=== PATIENT | male | born 1935 | race Caucasian/White ===

== ENCOUNTER 2021-03-17 16:06 | Emergency (ER) | payer OTHER ==
[2021-03-17] MEDS ORDERED: Sodium Chloride 0.9% 10 ML Syringe FLUSH PRN (16:17)
--- NOTE | 2021-03-17 16:32 | EDM.PDOC ---
ED HPI GENERAL MEDICAL PROBLEM - General Chief Complaint: Chest Pain Stated Complaint: CHEST PAINS Time Seen by Provider: 03/17/21 16:17 Source of Information: Reports: Patient, RN Notes Reviewed History Limitations: Reports: No Limitations - History of Present Illness INITIAL COMMENTS - FREE TEXT/NARRATIVE: Patient is an 85-year-old male who presents to the ER for evaluation of his chest pains. Incidentally the ambulance staff were in the ER bringing a different patient, and they did state that this was the gentleman that they had to do a lift assist on earlier this afternoon. Patient states that over the last week, he has had increased weakness, shortness of breath, some nausea, vomiting, diarrhea. States that he has some generalized chest discomfort but no obvious areas of chest pain. No increased cough, no fevers or chills. Patient does attend [facility] for [facility] care management, Dr. Navas is his PCP. His daughter did state that [facility] they referred him to the ER for further evaluation due to them not having access to radiology. Patient was not vaccinated for COVID-19. He does not think he has been around anyone has been sick. - Related Data Allergies Allergy/AdvReac Type Severity Reaction Status Date / Time aspirin Allergy Facial Verified 02/08/16 12:30 Swelling Home Meds: Home Meds Alogliptin Benzoate [Alogliptin] 12.5 mg PO DAILY 03/17/21 [History] Calcium Carbonate/Vitamin D3 [Oyster Shell 250 mg + Vit D] 1 tab PO BID 03/17/21 [History] Doxazosin Mesylate [Cardura XL] 4 mg PO BEDTIME 03/17/21 [History] Famotidine 20 mg PO BEDTIME 03/17/21 [History] Gabapentin [Neurontin] 600 mg PO TID 03/17/21 [History] Hydrocodone/Acetaminophen [HYDROcodone-Acetaminophen 5-325 MG] 1 tab PO BID 03/17/21 [History] Metoprolol Succinate [Toprol XL 50mg] 50 mg PO DAILY 03/17/21 [History] Multivitamin 1 tab PO DAILY 03/17/21 [History] Omeprazole 20 mg PO BID 03/17/21 [History] Pioglitazone [Actos] 30 mg PO DAILY 03/17/21 [History] atorvaSTATin [Lipitor] 5 mg PO BEDTIME 03/17/21 [History] cloNIDine [Catapres] 0.1 mg PO DAILY 03/17/21 [History] lisinopriL [Prinivil] 40 mg PO DAILY 03/17/21 [History] metFORMIN HCl [Metformin HCl] 500 mg PO BID 03/17/21 [History] ED ROS GENERAL - Review of Systems Review Of Systems: Comprehensive ROS is negative, except as noted in HPI. ED EXAM, GENERAL - Physical Exam Exam: See Below Exam Limited By: No Limitations General Appearance: Alert, WD/WN, No Apparent Distress Respiratory/Chest: No Respiratory Distress, Lungs Clear, Normal Breath Sounds, No Accessory Muscle Use, Chest Non-Tender Cardiovascular: Normal Peripheral Pulses, Regular Rate, Rhythm, No Edema Peripheral Pulses: 2+: Radial (L), Radial (R) Extremities: Normal Inspection, Normal Capillary Refill Neurological: Alert, Oriented, Normal Cognition, No Motor/Sensory Deficits Psychiatric: Normal Affect, Normal Mood Skin Exam: Warm, Dry, Intact, Normal Color, No Rash #1 Interpretation EKG Date: 03/17/21 Time: 16:15 Rhythm: NSR Rate (Beats/Min): 78 Ragan: Normal P-Wave: Present QRS: Normal ST-T: Normal QT: Normal Comparison: NA - No Prior EKG EKG Interpretation Comments: There are some old Q waves noted and some mild ST elevations in V3 through V5 noted by Dr. Sigala. Course - Vital Signs Last Recorded V/S: Last Vital Signs Temp 97.0 F 03/17/21 16:15 Pulse 79 03/17/21 16:15 Resp 20 03/17/21 16:15 BP 116/77 03/17/21 16:15 Pulse Ox 96 03/17/21 16:15 - Orders/Labs/Meds Orders: Active Orders 24 hr Category Date Time Status Peripheral IV Care [RC] . DIRECTED Care 03/17/21 16:17 Active BASIC METABOLIC PANEL,BMP [CHEM] Stat Lab 03/18/21 05:00 Ordered CBC WITH AUTO DIFF [HEME] Stat Lab 03/18/21 05:00 Ordered MAGNESIUM [CHEM] Stat Lab 03/18/21 05:00 Ordered PTT,PARTIAL THROMBOPLSTIN TIME [COAG] Q6H Lab 03/18/21 00:40 Ordered PTT,PARTIAL THROMBOPLSTIN TIME [COAG] Q6H Lab 03/18/21 06:40 Ordered PTT,PARTIAL THROMBOPLSTIN TIME [COAG] Q6H Lab 03/18/21 12:40 Ordered PTT,PARTIAL THROMBOPLSTIN TIME [COAG] Q6H Lab 03/18/21 18:40 Ordered PTT,PARTIAL THROMBOPLSTIN TIME [COAG] Q6H Lab 03/19/21 00:40 Ordered TROPONIN I [CHEM] Stat Lab 03/18/21 02:00 Ordered Acetaminophen/HYDROcodone Med 03/17/21 21:00 Active 1 tab PO BID Alogliptin Benzoate [Alogliptin] Med 03/18/21 09:00 Active 6.25 mg PO DAILY Calcium Carbonate [Calcium] Med 03/17/21 21:00 Active 500 mg PO BID Doxazosin Med 03/17/21 21:00 Active 1 mg PO BEDTIME Famotidine [Pepcid] Med 03/17/21 21:00 Active 10 mg PO BEDTIME Gabapentin [Neurontin] Med 03/17/21 21:00 Active 600 mg PO TID Heparin Sodium/D5W [Heparin 25,000 Units in D5W 500 ML] Med 03/17/21 18:30 Active 25,000 units in 500 ml IV TITRATE Multivitamin [Multivitamin] Med 03/18/21 09:00 Active 1 tab PO DAILY Omeprazole Med 03/17/21 21:00 Active 20 mg PO BID Sodium Chloride 0.9% [Saline Flush] Med 03/17/21 16:17 Active 10 ml FLUSH ASDIRECTED PRN atorvaSTATin Med 03/17/21 21:00 Active 5 mg PO BEDTIME cloNIDine [Catapres] Med 03/18/21 09:00 Active 0.1 mg PO DAILY lisinopriL [Prinivil] Med 03/18/21 09:00 Active 10 mg PO DAILY metFORMIN HCl [Metformin HCl] Med 03/17/21 21:00 Active 500 mg PO BID Peripheral IV Insertion Adult [OM.PC] Stat Oth 03/17/21 16:17 Ordered Medication Orders Clonidine HCl (Clonidine 0.1 Mg Tab) 0.1 mg PO DAILY DAV Famotidine (Famotidine 10 Mg Tab) 10 mg PO BEDTIME DAV Gabapentin (Gabapentin 600 Mg Tab) 600 mg PO TID DAV Heparin Sodium/Dextrose (Heparin 25,000 Units In D5w 500 Ml) 25,000 units in 500 mls @ 16.887 mls/hr IV TITRATE DAV; Protocol Last Admin: 03/17/21 18:40 Dose: 12 units/kg/hr, 16.887 mls/hr Documented by: MARTHA Cosigned by: KEVIN Lisinopril (Lisinopril 10 Mg Tab) 10 mg PO DAILY DAV Non-Formulary Medication (Acetaminophen/Hydrocodone) 1 tab PO BID DAV Non-Formulary Medication (Alogliptin Benzoate [Alogliptin]) 6.25 mg PO DAILY DAV Non-Formulary Medication (Atorvastatin) 5 mg PO BEDTIME DAV Non-Formulary Medication (Calcium Carbonate [Calcium]) 500 mg PO BID DAV Non-Formulary Medication (Doxazosin) 1 mg PO BEDTIME DAV Non-Formulary Medication (Metformin Hcl [Metformin Hcl]) 500 mg PO BID DAV Non-Formulary Medication (Multivitamin [Multivitamin]) 1 tab PO DAILY DAV Non-Formulary Medication (Omeprazole) 20 mg PO BID DAV Sodium Chloride (Sodium Chloride 0.9% 10 Ml Syringe) 10 ml FLUSH ASDIRECTED PRN PRN Reason: Keep Vein Open Last Admin: 03/17/21 16:23 Dose: 10 ml Documented by: KEVIN Labs: Laboratory Tests 03/17/21 03/17/21 03/17/21 Range/Units 16:58 16:58 16:58 WBC 6.81 (4.23-9.07) K/mm3 RBC 3.15 L (4.63-6.08) M/mm3 Hgb 9.5 L (13.7-17.5) gm/dl Hct 29.2 L (40.1-51.0) % MCV 92.7 H (79.0-92.2) fl MCH 30.2 (25.7-32.2) pg MCHC 32.5 (32.2-35.5) g/dl RDW Std Deviation 48.3 H (35.1-43.9) fL Plt Count 256 (163-337) K/mm3 MPV 11.1 (9.4-12.3) fl Neut % (Auto) 78.2 H (34.0-67.9) % Lymph % (Auto) 11.2 L (21.8-53.1) % Page % (Auto) 10.0 (5.3-12.2) % Eos % (Auto) 0.1 L (0.8-7.0) Baso % (Auto) 0.1 (0.1-1.2) % Neut # (Auto) 5.32 (1.78-5.38) K/mm3 Lymph # (Auto) 0.76 L (1.32-3.57) K/mm3 Page # (Auto) 0.68 (0.30-0.82) K/mm3 Eos # (Auto) 0.01 L (0.04-0.54) K/mm3 Baso # (Auto) 0.01 (0.01-0.08) K/mm3 PT 12.4 H (9.7-12.0) SECONDS INR 1.12 APTT 29.8 (21.7-31.4) SECONDS Sodium 137 (136-145) mEq/L Potassium 4.7 (3.5-5.1) mEq/L Chloride 103 (98-107) mEq/L Carbon Dioxide 15 L (21-32) mEq/L Anion Gap 23.7 H (5-15) BUN 82 H (7-18) mg/dL Creatinine 3.1 H (0.7-1.3) mg/dL Est Cr Clr Drug Dosing TNP Estimated GFR (MDRD) 19 (>60) mL/min BUN/Creatinine Ratio 26.5 H (14-18) Glucose 210 H (70-99) mg/dL Calcium 8.4 L (8.5-10.1) mg/dL Magnesium 2.2 (1.8-2.4) mg/dL Total Bilirubin 0.5 (0.2-1.0) mg/dL AST 20 (15-37) U/L ALT 18 (16-63) U/L Alkaline Phosphatase 60 (46-116) U/L Troponin I 2.648 H* (0.00-0.056) ng/mL NT-Pro-B Natriuret Pep (0-450) pg/mL Total Protein 6.4 (6.4-8.2) g/dl Albumin 2.6 L (3.4-5.0) g/dl Globulin 3.8 gm/dL Albumin/Globulin Ratio 0.7 L (1-2) Influenza Type A RNA (NEGATIVE) Influenza Type B RNA (NEGATIVE) SARS-CoV-2 RNA (JUNIE) (NEGATIVE) 03/17/21 03/17/21 03/17/21 Range/Units 16:58 18:32 20:00 WBC (4.23-9.07) K/mm3 RBC (4.63-6.08) M/mm3 Hgb (13.7-17.5) gm/dl Hct (40.1-51.0) % MCV (79.0-92.2) fl MCH (25.7-32.2) pg MCHC (32.2-35.5) g/dl RDW Std Deviation (35.1-43.9) fL Plt Count (163-337) K/mm3 MPV (9.4-12.3) fl Neut % (Auto) (34.0-67.9) % Lymph % (Auto) (21.8-53.1) % Page % (Auto) (5.3-12.2) % Eos % (Auto) (0.8-7.0) Baso % (Auto) (0.1-1.2) % Neut # (Auto) (1.78-5.38) K/mm3 Lymph # (Auto) (1.32-3.57) K/mm3 Page # (Auto) (0.30-0.82) K/mm3 Eos # (Auto) (0.04-0.54) K/mm3 Baso # (Auto) (0.01-0.08) K/mm3 PT (9.7-12.0) SECONDS INR APTT (21.7-31.4) SECONDS Sodium (136-145) mEq/L Potassium (3.5-5.1) mEq/L Chloride (98-107) mEq/L Carbon Dioxide (21-32) mEq/L Anion Gap (5-15) BUN (7-18) mg/dL Creatinine (0.7-1.3) mg/dL Est Cr Clr Drug Dosing Estimated GFR (MDRD) (>60) mL/min BUN/Creatinine Ratio (14-18) Glucose (70-99) mg/dL Calcium (8.5-10.1) mg/dL Magnesium (1.8-2.4) mg/dL Total Bilirubin (0.2-1.0) mg/dL AST (15-37) U/L ALT (16-63) U/L Alkaline Phosphatase (46-116) U/L Troponin I 2.785 H* (0.00-0.056) ng/mL NT-Pro-B Natriuret Pep > 08307 H (0-450) pg/mL Total Protein (6.4-8.2) g/dl Albumin (3.4-5.0) g/dl Globulin gm/dL Albumin/Globulin Ratio (1-2) Influenza Type A RNA Negative (NEGATIVE) Influenza Type B RNA Negative (NEGATIVE) SARS-CoV-2 RNA (JUNIE) Negative (NEGATIVE) Meds: Medications Generic Name Dose Route Start Last Admin Trade Name Freq PRN Reason Stop Dose Admin Clonidine HCl 0.1 mg 03/18/21 09:00 Clonidine 0.1 Mg Tab PO DAILY DAV Famotidine 10 mg 03/17/21 21:00 Famotidine 10 Mg Tab PO BEDTIME DAV Gabapentin 600 mg 03/17/21 21:00 Gabapentin 600 Mg Tab PO TID [facility] Heparin Sodium/Dextrose 25,000 units in 500 mls @ 16.887 mls/hr 03/17/21 18:30 03/17/21 18:40 Heparin 25,000 Units In D5w 500 Ml IV 12 units/kg/hr TITRATE DAV 16.887 mls/hr Administration Protocol 12 UNITS/KG/HR Lisinopril 10 mg 03/18/21 09:00 Lisinopril 10 Mg Tab PO DAILY DAV Non-Formulary Medication 1 tab 03/17/21 21:00 Acetaminophen/Hydrocodone PO BID [facility] Non-Formulary Medication 6.25 mg 03/18/21 09:00 Alogliptin Benzoate [Alogliptin] PO DAILY [facility] Non-Formulary Medication 5 mg 03/17/21 21:00 Atorvastatin PO BEDTIME DAV Non-Formulary Medication 500 mg 03/17/21 21:00 Calcium Carbonate [Calcium] PO BID [facility] Non-Formulary Medication 1 mg 03/17/21 21:00 Doxazosin PO BEDTIME DAV Non-Formulary Medication 500 mg 03/17/21 21:00 Metformin Hcl [Metformin Hcl] PO BID [facility] Non-Formulary Medication 1 tab 03/18/21 09:00 Multivitamin [Multivitamin] PO DAILY [facility] Non-Formulary Medication 20 mg 03/17/21 21:00 Omeprazole PO BID DAV Sodium Chloride 10 ml 03/17/21 16:17 03/17/21 16:23 Sodium Chloride 0.9% 10 Ml Syringe FLUSH 10 ml ASDIRECTED PRN Administration Keep Vein Open Discontinued Medications Generic Name Dose Route Start Last Admin Trade Name Una PRN Reason Stop Dose Admin Heparin Sodium (Porcine) 4,000 units 03/17/21 18:20 03/17/21 18:42 Heparin Sodium 5,000 Units/Ml Vial IVPUSH 03/17/21 18:21 4,000 units .BOLUS ONE Administration Loperamide HCl 4 mg 03/17/21 21:11 03/17/21 21:23 Loperamide 2 Mg Cap PO 03/17/21 21:12 4 mg ONETIME ONE Administration - Re-Assessments/Exams Free Text/Narrative Re-Assessment/Exam: 03/17/21 16:32 Patient presents to the ER for the evaluation of his chest pains and other generalized symptoms. EKG was obtained at time of triage, does show some old infarcts however the patient is denying any previous myocardial injuries. I did offer to do a COVID-19 screen but the patient refused. We will also do chest x-ray and basic labs for evaluation. 03/17/21 17:56 Initial labs have started to result, CBC demonstrates a normal white count, but slightly low red count at 3.15 with hemoglobin level at 9.5, suggesting anemia. Chest x-ray did show slight parenchymal densities within both lung bases. Please correlate if patient has symptoms suggest mild pneumonia, findings otherwise could represent prominent atelectasis. Metabolic panel and other labs are still pending. EKG does show normal sinus rhythm with some Q waves suggesting old cardiac injury however the patient denied any hospitalizations for anything like this. 03/17/21 19:42 Metabolic panel was impressive for renal insufficiency with a creatinine elevated at 3.1 GFR low at 19, anion gap is elevated as well. Coagulation studies were within normal limits. Patient's BNP was markedly elevated at over 35,000, troponin is elevated at 2.648. I have been in contact with both facilities in [facility], and [facility] in [place] and all of these facilities were either on diversion or declined the patient for transfer at this time. I have called the state transfer center to try to get this patient transferred. I was able to speak with a provider in [place] and he does recommend starting heparin, and trending the troponins while waiting. Patient Covid screen was negative. A second troponin has been ordered for 1999. ER boarding orders will likely be filled out to continue all of his prior medications, repeat troponins and labs in the morning. 03/17/21 20:49 Repeat troponin was elevated at 2.785, which did go up from his initial draw. Have been in contact with [facility] in [facility], they might have a bed for transfer this patient. 03/17/21 21:04 I was able to talk with [facility] in [facility] and they do have a bed for transfer for this patient and Dr. Hawthorne has ultimately accepted the patient in transfer for non-STEMI. Departure - Departure Time of Disposition: 21:09 Disposition: DC/Tfer to Acute Hospital 02 Reason for Transfer *Q: Other (NSTEMI) Condition: Fair Clinical Impression: NSTEMI (non-ST elevated myocardial infarction) Forms: ED Department Discharge Sepsis Event Note (ED) - Evaluation Sepsis Screening Result: No Definite Risk - Focused Exam Vital Signs: Vital Signs Temp Pulse Resp BP Pulse Ox 03/17/21 16:15 97.0 F 79 20 116/77 96 - My Orders Last 24 Hours: My Active Orders 03/17/21 16:17 Peripheral IV Care [RC] . DIRECTED Sodium Chloride 0.9% [Saline Flush] 10 ml FLUSH ASDIRECTED PRN Peripheral IV Insertion Adult [OM.PC] Stat 03/17/21 18:30 Heparin Sodium/D5W [Heparin 25,000 Units in D5W 500 ML] 25,000 units in 500 ml IV TITRATE 03/17/21 21:00 Acetaminophen/HYDROcodone 1 tab PO BID Calcium Carbonate [Calcium] 500 mg PO BID Doxazosin 1 mg PO BEDTIME Famotidine [Pepcid] 10 mg PO BEDTIME Gabapentin [Neurontin] 600 mg PO TID Omeprazole 20 mg PO BID atorvaSTATin 5 mg PO BEDTIME metFORMIN HCl [Metformin HCl] 500 mg PO BID 03/18/21 00:40 PTT,PARTIAL THROMBOPLSTIN TIME [COAG] Q6H 03/18/21 02:00 TROPONIN I [CHEM] Stat 03/18/21 05:00 BASIC METABOLIC PANEL,BMP [CHEM] Stat CBC WITH AUTO DIFF [HEME] Stat MAGNESIUM [CHEM] Stat 03/18/21 06:40 PTT,PARTIAL THROMBOPLSTIN TIME [COAG] Q6H 03/18/21 09:00 Alogliptin Benzoate [Alogliptin] 6.25 mg PO DAILY Multivitamin [Multivitamin] 1 tab PO DAILY cloNIDine [Catapres] 0.1 mg PO DAILY lisinopriL [Prinivil] 10 mg PO DAILY 03/18/21 12:40 PTT,PARTIAL THROMBOPLSTIN TIME [COAG] Q6H 03/18/21 18:40 PTT,PARTIAL THROMBOPLSTIN TIME [COAG] Q6H 03/19/21 00:40 PTT,PARTIAL THROMBOPLSTIN TIME [COAG] Q6H - Assessment/Plan Last 24 Hours: My Active Orders 03/17/21 16:17 Peripheral IV Care [RC] . DIRECTED Sodium Chloride 0.9% [Saline Flush] 10 ml FLUSH ASDIRECTED PRN Peripheral IV Insertion Adult [OM.PC] Stat 03/17/21 18:30 Heparin Sodium/D5W [Heparin 25,000 Units in D5W 500 ML] 25,000 units in 500 ml IV TITRATE 03/17/21 21:00 Acetaminophen/HYDROcodone 1 tab PO BID Calcium Carbonate [Calcium] 500 mg PO BID Doxazosin 1 mg PO BEDTIME Famotidine [Pepcid] 10 mg PO BEDTIME Gabapentin [Neurontin] 600 mg PO TID Omeprazole 20 mg PO BID atorvaSTATin 5 mg PO BEDTIME metFORMIN HCl [Metformin HCl] 500 mg PO BID 03/18/21 00:40 PTT,PARTIAL THROMBOPLSTIN TIME [COAG] Q6H 03/18/21 02:00 TROPONIN I [CHEM] Stat 03/18/21 05:00 BASIC METABOLIC PANEL,BMP [CHEM] Stat CBC WITH AUTO DIFF [HEME] Stat MAGNESIUM [CHEM] Stat 03/18/21 06:40 PTT,PARTIAL THROMBOPLSTIN TIME [COAG] Q6H 03/18/21 09:00 Alogliptin Benzoate [Alogliptin] 6.25 mg PO DAILY Multivitamin [Multivitamin] 1 tab PO DAILY cloNIDine [Catapres] 0.1 mg PO DAILY lisinopriL [Prinivil] 10 mg PO DAILY 03/18/21 12:40 PTT,PARTIAL THROMBOPLSTIN TIME [COAG] Q6H 03/18/21 18:40 PTT,PARTIAL THROMBOPLSTIN TIME [COAG] Q6H 03/19/21 00:40 PTT,PARTIAL THROMBOPLSTIN TIME [COAG] Q6H
--- NOTE | 2021-03-17 16:48 | CR ---
Chest: Portable view of the chest was obtained. Comparison: No prior chest imaging is available. Slight increased density is seen within both lung bases. Upper lungs are clear. Heart size and mediastinum appear within normal limits for portable technique. Bony structures are osteopenic. Scattered degenerative change is seen within the spine with minimal scoliosis. Impression: 1. Slight parenchymal densities within both lung bases. Please correlate if patient has symptoms to suggest mild pneumonia. Findings otherwise represent prominent atelectasis. 2. Other findings believed to be chronic as described above. Diagnostic code #3
[2021-03-17] MEDS ORDERED: Heparin Sodium 5,000 Units/ML Vial IVPUSH ONE (18:20)
[2021-03-17] MEDS ORDERED: Heparin Sodium/D5W 25,000 UNITS/500 ML BAG IV SCH (18:30)
[2021-03-17 19:27] LABS: CORONAVIRUS COVID-19 NAA NEGATIVE (NEGATIVE)
[2021-03-17] MEDS ORDERED: Non-Formulary Medication 1 Each (Atorvastatin 10 MG Tablet) PO SCH (21:00)
[2021-03-17] MEDS ORDERED: Famotidine 10 MG Tab PO SCH (21:00)
[2021-03-17] MEDS ORDERED: Non-Formulary Medication 1 Each (Metformin Hcl [Metformin Hcl] 1,000 MG Tablet) PO SCH (21:00)
[2021-03-17] MEDS ORDERED: Non-Formulary Medication 1 Each (Acetaminophen/Hydrocodone 1 EACH Tablet) PO SCH (21:00)
[2021-03-17] MEDS ORDERED: Non-Formulary Medication 1 Each (Calcium Carbonate [Calcium] 500 MG Tablet) PO SCH (21:00)
[2021-03-17] MEDS ORDERED: Non-Formulary Medication 1 Each (Doxazosin 1 MG Tablet) PO SCH (21:00)
[2021-03-17] MEDS ORDERED: Gabapentin 600 MG Tab PO SCH (21:00)
[2021-03-17] MEDS ORDERED: Non-Formulary Medication 1 Each (Omeprazole 20 MG Cap.Cr) PO SCH (21:00)
[2021-03-17] MEDS ORDERED: Loperamide 2 MG Cap PO ONE (21:11)
[2021-03-18] MEDS ORDERED: Lisinopril 10 MG Tab PO SCH (09:00)
[2021-03-18] MEDS ORDERED: Non-Formulary Medication 1 Each (Multivitamin [Multivitamin] 1 EACH Tablet) PO SCH (09:00)
[2021-03-18] MEDS ORDERED: ALOGLIPTIN BENZOATE 6.25 MG PO SCH (09:00)
[2021-03-18] MEDS ORDERED: cloNIDine 0.1 MG Tab PO SCH (09:00)
== END 2021-03-17 23:19 ==
LOC: JD.ED 16:06
DX: I21.4 Non-ST elevation (NSTEMI) myocardial infarction (principal); Z88.8 Allergy status to other drugs, medicaments and biological substances; Z79.84 Long term (current) use of oral hypoglycemic drugs; Z79.899 Other long term (current) drug therapy; Z20.822 Contact with and (suspected) exposure to COVID-19
CPT/HCPCS: 0240U; 36415; 71045; 80053; 83735; 83880; 84484; 85025; 85610; 85730; 93005; 96365; 96366; 99285; A9270; J1644

== ENCOUNTER 2021-05-25 18:29 | Emergency (ER) | payer OTHER ==
[2021-05-25] MEDS ORDERED: Lactated Ringers 1,000 ML IV SCH (19:30)
[2021-05-25] MEDS ORDERED: Lactated Ringers 500 ML IV ONE (21:07)
== END 2021-05-25 23:50 | disposition home or self-care (01) ==
LOC: JD.ED 18:29
DX: N17.9 Acute kidney failure, unspecified (principal); I13.0 Hypertensive heart and chronic kidney disease with heart failure and stage 1 through stage 4 chronic kidney disease, or unspecified chronic kidney disease; N18.9 Chronic kidney disease, unspecified; I50.9 Heart failure, unspecified; E86.0 Dehydration; I10 Essential (primary) hypertension; E11.9 Type 2 diabetes mellitus without complications; Z88.8 Allergy status to other drugs, medicaments and biological substances; Z79.899 Other long term (current) drug therapy; Z79.82 Long term (current) use of aspirin; Z79.02 Long term (current) use of antithrombotics/antiplatelets
CPT/HCPCS: 36415; 74022; 80053; 83605; 83690; 83880; 84134; 84484; 85025; 93005; 99284; J7120